=== PATIENT | male | born 1995 | race African-American/Black ===

== ENCOUNTER 2021-01-20 03:59 | Emergency (ER) | payer MEDICAID, SELFPAY ==
[2019-12-30 14:21] VITALS: BMI 23.6
[2021-01-20 04:00] VITALS: BP 134/88; PULSE 67; RESP 18; TEMP 36.9; O2SAT 98; BMI 27.1
[2021-01-20 04:20] LABS: Absolute Lymphocyte Count 2.95 X10^3/uL (0.83-4.51); Absolute Neutrophil Count 6.5 X10^3/uL (2.0-7.7); Basophil# 0.03 X10^3/uL; Basophil% 0.3 % (0-1); Eosinophils% 1.9 % (0-5); Hematocrit 49.2 % (40-54); Lymphocyte # 2.95 X10^3/ul (4.0); Lymphocyte % 28.6 % (19-41); Mean Corp Hgb Conc 32.5 g/dL (32-36); Mean Corpuscular Volume 92.3 fL (80-94); Mean Platelet Vol. 11.6 fl (6.2-12.0); Monocyte# 0.59 X10^3/uL; Monocyte% 5.7 % (0-10); NRBC Flagged by Analyzer 0 % (0-5); Neutrophil # 6.52 X10^3/uL (2.7-7.7); Neutrophil % 63.1 % (47-70); Platelet Count 171 K/mm3 (150-450); RBC Distribution Width CV 11.9 % (11.6-14.6); RBC Distribution Width SD 40.7 fl (35.1-43.9); Red Blood Count 5.33 M/mm3 (4.6-6.2); White Blood Count 10.3 K/mm3 (4.4-11.0)
--- NOTE | 2021-01-20 04:23 | RAD_ITS ---
STUDY: X-RAY CHEST REASON FOR EXAM: Male, 25 years old. Chest pain TECHNIQUE: PA and lateral views of the chest. COMPARISON: 02/17/2011. FINDINGS: The lungs are clear and expanded. There is no demonstrated pleural abnormality. Normal size heart. Normal mediastinum and glen. Normal visualized pulmonary arteries. Normal visualized aortic arch and descending thoracic aorta. Normal visualized thoracic spine. Normal visualized ribs, clavicles, and shoulders. There is no demonstrated abnormality of the visualized soft tissue structures of the upper abdomen. RAD/Chest PA and Lateral IMPRESSION: Normal x-ray examination of the chest. Electronically Signed: Maria Elena Holland MD at 4:49 EDT , Service support ,
--- NOTE | 2021-01-20 04:23 | US_ITS ---
STUDY: ABDOMINAL ULTRASOUND - RIGHT UPPER QUADRANT REASON FOR VISIT: Male, 25 years old RUQ pain TECHNIQUE: Ultrasound evaluation of the right upper quadrant was performed with real-time and static hughes-scale imaging. TECHNICAL QUALITY: Limited. Examination limited by bowel gas. COMPARISON: None. FINDINGS: Liver: The liver measures 14.6 cm. There is normal echogenicity of the liver. The bile ducts are within normal limits. There is hepatic color flow. The direction of portal flow is hepatopetal. There is no demonstrated mass lesion. Gallbladder: There is a contracted gallbladder. The gallbladder wall measures 3.0 mm. There is a negative sonographic Chand''s sign. There is no pericholecystic fluid. There are no gallstones. Common Bile Duct (C.B.D.): The common bile duct measures 3.0 mm. Pancreas: Normal size of the head, body and tail of the pancreas. There is normal echogenicity of the pancreas. There is no demonstrated pancreatic mass or cyst. Right Kidney: Normal size of the right kidney. The right kidney measures 9.9 x 4.9 x 4.2 cm cm. Normal renal cortex. The right cortex measures 1.7 cm. There is no demonstrated renal mass or cyst. There is no right hydronephrosis. US/Gallbladder IMPRESSION: Contracted gallbladder otherwise unremarkable right upper quadrant ultrasound examination. Electronically Signed: Maria Elena Holland MD at 5:52 EDT , Service support ,
--- NOTE | 2021-01-20 04:24 | ED.VIS.GEN ---
History of Present Illness Chief Complaint: Abd Pain Narrative: This patient is a 25-year-old male who presents with right upper quadrant abdominal pain. This is been occurring intermittently over the last 6 weeks. He has noted some association with eating. He states certain meats and possibly berries have seemed to trigger episodes of pain. They usually last about 20 minutes at a time. He describes it as colicky and sharp. Today's episode has been more persistent for about 30 to 40 minutes. It is more severe. It is painful to take a deep breath. It radiates through to the back. No fevers. No nausea vomiting or diarrhea. No abdominal surgeries. No history of DVT or pulmonary embolism. No extremity pain or swelling. No recent travel immobilization hospitalization or surgery. Past Medical History - Allergies and Home Meds Allergies/Adverse Reactions: Allergies No Known Allergies Allergy (Unverified 11/14/19 14:27) Primary Care Physician: NOT,DEFINED [NON-STAFF] - Past Medical History: None Smoking Status: Former smoker Review of Systems All systems negative except as indicated General: Denies: Fever Eyes: Denies: Visual changes - bilaterally ENT: Denies: Bilateral ear pain Cardiovascular: Reports: Chest pain Respiratory: Denies: Dyspnea Gastrointestinal: Reports: Abdominal pain. Denies: Nausea, Vomiting, Diarrhea Musculoskeletal: Reports: Back pain. Denies: Myalgias, Arthralgias Skin: Denies: Rash Neurological: Denies: Headache Hematologic: Denies: Easy bruising Allergy: Denies: Uticaria Physical Exam Vital Signs/Narrative: Vital Signs Temp Pulse Resp BP Pulse Ox 01/20/21 04:00 98.5 F 67 18 134/88 H 98 Inital Vital Signs reviewed: Yes General: Well nourished Head: Normocephalic Eyes: EOMI ENT: Moist mucous membranes Neck: Supple Cardiovascular: Regular rate, Regular rhythm Respiratory: No distress, CTA bilaterally Abdomen: Soft, Tender, - - Patient does have right upper quadrant abdominal tenderness without guarding without rebound no Chand sign Skin: Normal color Neurological: Alert Psychological: Normal affect Diagnostic/Tx/Re-eval Impressions Chest X-Ray 01/20/21 04:23 IMPRESSION: Normal x-ray examination of the chest. Electronically Signed: Maria Elena Holland MD at 4:49 EDT , Service support , Gallbladder Ultrasound 01/20/21 04:23 IMPRESSION: Contracted gallbladder otherwise unremarkable right upper quadrant ultrasound examination. Electronically Signed: Maria Elena Holland MD at 5:52 EDT , Service support , 01/20/21 04:23 CXR [Chest PA and Lateral] [RAD] Stat Gallbladder [US] Stat Laboratory Results 01/20/21 01/20/21 04:08 04:08 WBC 10.3 RBC 5.33 Hgb 16.0 Hct 49.2 MCV 92.3 MCH 30.0 MCHC 32.5 RDW Std Deviation 40.7 RDW Coeff of Pearl 11.9 Plt Count 171 MPV 11.6 Immature Gran % (Auto) 0.400 Neut % (Auto) 63.1 Lymph % (Auto) 28.6 [place] % (Auto) 5.7 Eos % (Auto) 1.9 Baso % (Auto) 0.3 Absolute Neuts (auto) 6.5 Absolute Lymphs (auto) 2.95 Nucleated RBC % 0 Sodium 141 Potassium 4.1 Chloride 107 Carbon Dioxide 33.0 H Anion Gap 1 L BUN 18 Creatinine 1.40 H Estim Creat Clear Calc 74.76 Est GFR (MDRD) Af Amer 78 Est GFR (MDRD) Non-Af 65 BUN/Creatinine Ratio 12.9 Glucose 86 Calcium 8.8 Total Bilirubin 0.20 AST 14 L ALT 19 Alkaline Phosphatase 79 Total Protein 7.4 Albumin 4.0 Globulin 3.4 Albumin/Globulin Ratio 1.2 Lipase 189 - Medical Decision Making Serum laboratory studies are normal. Chest x-ray shows no acute process. Patient is PERC rule negative. Right upper quadrant ultrasound shows a contracted gallbladder otherwise normal. Patient was given IV Toradol. He does report significant improvement on reevaluation. He was given a referral for a primary care provider. He was advised to follow-up as an outpatient but was given clear instructions of specific signs and symptoms to monitor for and symptoms that should prompt immediate return for reevaluation. All questions answered at bedside. Patient agreeable to this plan. Patient discharged. ED Disposition - Plan for ED Patient: Disposition: Home or Assisted Living Diagnosis: RUQ abdominal pain Instructions: ED Unknown Causes of Abdominal ... Referrals: NOT,DEFINED [NON-STAFF] -
[2021-01-20 04:28] LABS: ALB/GLOB Ratio 1.2 RATIO (0.9-2.4); AST(SGOT) 14 U/L (15-37); Alanine Aminotransfer ALT/SGPT 19 U/L (16-61); Alkaline Phosphatase 79 U/L (45-117); Anion Gap 1 (5-15); BUN 18 mg/dL (7-18); BUN/Creat Ratio 12.9 RATIO (10-20); Calcium,Total 8.8 mg/dL (8.5-10.1); Chloride 107 mmol/L (98-107); EST Glomerular Filtration Rate 65 mL/min (>60); Est Glom Filt Rate - Afr Amer 78 mL/min (>60); Estimated Creatinine Clearance 74.76 ml/min; Globulin 3.4 g/dL (2.2-4.2); Glucose 86 mg/dL (74-106); Lipase 189 U/L (73-393); Potassium 4.1 mmol/L (3.5-5.1); Protein, Total 7.4 g/dL (6.4-8.2); Sodium Level 141 mmol/L (136-145)
[2021-01-20] MEDS: Ketorolac 30 MG/ML Syringe IV (04:41)
[2021-01-20 05:41] VITALS: BP 122/63; PULSE 58; RESP 17; O2SAT 98
[2021-01-20 06:15] VITALS: BP 136/74; PULSE 78; RESP 17; TEMP 36.6; O2SAT 97
== END 2021-01-20 06:18 | disposition home or self-care (01) ==
PROVIDERS: Emergency Provider Emergency Medicine
DX: R10.11 Right upper quadrant pain (principal); M54.9 Dorsalgia, unspecified; Z87.891 Personal history of nicotine dependence
CPT/HCPCS: 71046; 76705; 80053; 83690; 85025; 96374; 99283; A4216